=== PATIENT | female | born 1960 | race Caucasian/White ===

== ENCOUNTER 2018-07-16 07:47 | Inpatient (IN) | payer MEDICAID ==
--- NOTE | 2018-07-12 19:57 | RADRPT ---
Vent Rate: 56 bpm RR Interval: 0 msec [place] Interval: 174 msec QRS Duration: 82 msec QT Interval: 424 msec QTC Interval: 409 msec P-R-T [place]: 67 - 88 - 71 degrees Sinus bradycardia Otherwise normal ECG Electronically Signed By: Curtis Love [id number]
[2018-07-16] VITALS (25 sets, daily range): BP systolic 102–158; BP diastolic 53–83; PULSE 61–90; RESP 11–18
[~2018-07-16] VITALS: Ht 152.4 cm; Wt 59.1 kg
[~2018-07-16 07:47] MED LIST: ACETAMINOPHEN 500 MG TAB PO ONE; DESFLURANE 15 MIN ONE; LIDOCAINE 2% (SDV) 5 ML INJ ONE
[2018-07-16] MEDS ORDERED: CEFAZOLIN 2 GM/50 ML (PMX) 50 ML IVPB ONE (08:00)
[2018-07-16] MEDS ORDERED: SOD CHLORIDE 0.9% 1,000 ML IV SCH (08:00)
[2018-07-16] MEDS ORDERED: FENTAnyl 50 MCG/ML VIAL ONE ×2 (10:14→11:42)
[2018-07-16] MEDS ORDERED: MIDAZOLAM 1 MG/ML 2 ML INJ ONE (10:14)
[2018-07-16] MEDS ORDERED: FAMOTIDINE 20 MG INJ ONE (10:15)
--- NOTE | 2018-07-16 10:38 | PREAC ---
Date/Time of Note Date/Time of Note DATE: 07/16/18 TIME: 10:37 Anesthesia Eval and Record Evaluation Time Pre-Procedure Interview DATE: 07/16/18 TIME: 10:37 Age 58 Sex female NPO: 8 hrs Preoperative diagnosis papillary carcinoma Planned procedure total thyroidectomy Past Medical History Past Medical History: Includes (hx lymphoma w/ chemo last year March) Surgery & Anesthesia Issues No known issue Meds Anticoagulation: No Beta Dayana within 24 hr: No Reason Beta Dayana not given: Pt. not on B-Dayana No Active Prescriptions or Reported Meds Current Medications Sodium Chloride 1,000 ml @ 75 mls/hr [id number] IV Last administered on 07/16/18at 08:46; Admin Dose 75 MLS/HR; Start 07/16/18 at 08:00; Stop 07/16/18 at 21:19 Meds reviewed: Yes Allergies Coded Allergies: No Known Drug Allergies (Unverified Allergy, Unknown, 07/16/18) Allergies Reviewed: Yes Labs/Studies Labs Reviewed: Reviewed by anesthesiologist test: N/A Studies: ECG (nsr), CXR ( No evidence of active cardiopulmonary disease.) Pre-procedure Exam Last vitals Vital Signs Date Temp Pulse Resp B/P (MAP) Pulse Ox O2 O2 Flow FiO2 Time Delivery Rate 07/16/18 97.8 64 16 129/67 97 Room Air 08:52 (87) Airway: Adequate mouth opening, Adequate thyromental dist Mallampati: Mallampati II Teeth: Normal Lung: Normal Heart: Normal ASA Physical Status ASA physical status: 2 Emergency: None Planned Anesthetic General/MAC: ETT Pre-operative Attestations Prior to commencing anesthesia and surgery, the patient was re-evaluated, there was verification of: *The patient's identity *The results of appropriate recent lab work and preoperative vital signs *The above evaluation not changing prior to induction *Anesthetic plan, risk benefits, alternative and complications discussed with patient/family; questions answered; patient/family understands, accepts and wishes to proceed. DAMARIS WADE Jul 16, 2018 10:38
[2018-07-16] MEDS ORDERED: CEFAZOLIN 1 GM INJ ONE (10:56)
[2018-07-16] MEDS ORDERED: ONDANSETRON 4 MG INJ ONE (10:56)
[2018-07-16] MEDS ORDERED: DEXAMETHASONE 4 MG/ML 5 ML INJ ONE (10:56)
[2018-07-16] MEDS ORDERED: ROCURONIUM 50 MG INJ ONE (10:56)
[2018-07-16] MEDS ORDERED: PROPOFOL 40 ML ONE (10:56)
--- NOTE | 2018-07-16 11:18 | PAC ---
Date/Time of Note Date/Time of Note DATE: 07/16/18 TIME: 11:18 Post-Anesthesia Notes Post-Anesthesia Note Last documented vital signs Vital Signs Date Temp Pulse Resp B/P (MAP) Pulse Ox O2 O2 Flow FiO2 Time Delivery Rate 07/16/18 97.8 64 16 129/67 97 Room Air 08:52 (87) Activity: WNL Respiratory function: WNL Cardiovascular function: WNL Mental status: Baseline Pain reasonably controlled: Yes Hydration appropriate: Yes Nausea/Vomiting absent: Yes Comments BP:107/64, pulse:68, spo2:100%, T:98,8 MARY BETH DOMINGO MD Jul 16, 2018 11:18
[2018-07-16] MEDS ORDERED: FENTAnyl 50 MCG/ML VIAL IV PRN ×2 (12:30)
[2018-07-16] MEDS ORDERED: MEPERIDINE 25 MG INJ IV PRN (12:30)
[2018-07-16] MEDS ORDERED: OXYCODONE/ACETAMINOPHEN (5/325) TAB PO PRN ×2 (12:30)
[2018-07-16] MEDS ORDERED: ONDANSETRON 4 MG INJ IV PRN ×2 (12:30→14:00)
[2018-07-16] MEDS ORDERED: DIPHENHYDRAMINE 50 MG INJ IV PRN (12:30)
[2018-07-16] MEDS ORDERED: ALBUTEROL 0.083% (NEB) 2.5 MG/3 ML AMP HHN PRN (12:30)
[2018-07-16] MEDS ORDERED: HYDROmorphONE 1 MG/5 ML IV SYRINGE IV PRN ×2 (12:30)
[2018-07-16] MEDS ORDERED: LABETALOL HCL 20MG INJ IV PRN (12:30)
--- NOTE | 2018-07-16 13:56 | SIPON ---
Date/Time of Note Date/Time of Note DATE: 07/16/18 TIME: 13:55 Operative Report Preoperative Diagnosis Papillary carcinoma right thyroid lobe Postoperative Diagnosis Same Operation/Procedure Performed Total thyroidectomy Surgeon see signature line catering assistant Dr Burger Anesthesia: general Estimated blood loss: 0 - 10 ml's Transfusion Required none Specimen Total thyroidectomy specimen Grafts/Implants none Complications none CARRIE PEREA MD Jul 16, 2018 13:56
--- NOTE | 2018-07-16 13:57 | NUR ---
RECEIVED PATIENT FROM OR VIA BED POST TOTAL THYROIDECTOMY UNDER GENERAL ANESTHESIA. PATIENT STILL SLEEPING ON ARRIVAL .ORAL AIRWAY ON .ON O2 6L VIA FACE MASK SATURATING 100%.SR BP STABLE .DRESSING TO ANTERIOR NECK DRY AND INTACT.
[2018-07-16] MEDS ORDERED: morphine 2 MG INJ IV PRN (14:00)
--- NOTE | 2018-07-16 14:00 | OPR ---
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 OPERATION PERFORMED: Total thyroidectomy. ANESTHESIA: General. ANESTHESIOLOGIST: Nurse panel cutter, Rosario José NP SURGEON: Basim Martin MD STEEL INSPECTOR: Yovany Burger MD INDICATIONS FOR PROCEDURE: The patient is a 58-year-old female who is known to me. She was being tr eated for lymphoma. When a PET scan identified there is suspicious area in the thyroid, subsequent w orkup including an ultrasound-guided FNA revealed findings consistent with papillary carcinoma. She was counseled as to the need for surgery. We discussed the possibility of a unilateral right thyroid lobectomy as the tumor was approximately 1.5 cm versus total thyroidectomy and therefore, she was co nsented for right thyroid lobectomy, possible total thyroidectomy. DESCRIPTION OF PROCEDURE: The patient was brought to the operating theater, placed under general ane sthesia. The neck was put in the extended position and prepped and draped in usual sterile fashion. A planned incision was demarcated with marking pen approximately 2 cm above the clavicle and extendi ng of 4 to 5 cm on either side of the midline. Incision was carried out with 15-blade scalpel. Subc utaneous tissue was dissected with cautery down through the platysma muscles bilaterally. Subplatysm al flaps were then created using cautery, first inferiorly to the level of the clavicles and sternal notch, then superiorly to the level of the hyoid bone. The Silverio retractor was then placed in larissa dard fashion. The median raphe was incised longitudinally. This allowed identification of the under lying strap muscles. Attention was first directed to the right side. With meticulous dissection, th e strap muscles were dissected off of the capsule of the thyroid. Attention was directed to superior pole. The superior pole was mobilized using controlling lymphovascular structures with the LigaSure device. The tumor was palpable within the superior portion of the right lobe of the thyroid. Mobil ization of the thyroid continued in the parathyroid glands and the right laryngeal nerve were identif ied and kept out of harm's way and subsequently, the inferior pole was mobilized and the thyroid isth mus was dissected off of the trachea. The right lobe of thyroid was then removed by transecting the mid portion of the isthmus with the LigaSure device. Intraoperative frozen section analysis of both gross margins and evaluation for additional tumor then took place by attending pathologist, Dr. Frederic Adair. There was a satellite tumor noted. It underwent frozen section. It was confirmed that it was papillary carcinoma. Therefore, the patient had multicentric disease and decision was made to be in the patient's best interest to undergo completion thyroidectomy. Therefore, the left lobe of thyroid was mobilized. The inferior pole was transected using LigaSure device. Great care was taken to identify the parathyroid glands and the left recurrent laryngeal nerve. They were kept out of hackett rm's way at all times. Subsequently, the superior pole was mobilized using LigaSure device. Final c onnective tissue attachments consisting of ligament of Plascencia were then transected with either cautery or the LigaSure device and the lobe was sent separately for permanent pathologic analysis. It shoul d also be noted that additional small remnant of both right thyroid tissue and left thyroid tissue wa s removed and sent separately for pathologic analysis. Wound was irrigated. There was no evidence o f bleeding. The median raphe was reapproximated with multiple 4-0 Vicryl sutures in interrupted fash ion. The overlying platysma muscles were also reapproximated with 4-0 Vicryl sutures in interrupted fashion and the skin was then reapproximated with 5-0 PDS suture in subcuticular fashion and benzoin and Steri-Strips were applied. The patient tolerated the procedure well. The estimated blood loss w as 30 mL. There were no complications and the patient was transported in stable condition to the rec overy room. Dictated By: BASIM AMAYA/ILIANA Conf#: [id number] DID#: [id number]
--- NOTE | 2018-07-16 14:00 | PAC ---
Date/Time of Note Date/Time of Note DATE: 07/16/18 TIME: 13:59 Post-Anesthesia Notes Post-Anesthesia Note Last documented vital signs Vital Signs Date Temp Pulse Resp B/P (MAP) Pulse Ox O2 O2 Flow FiO2 Time Delivery Rate 07/16/18 98.7 80 16 102/53 99face 8L 1357 mask Activity: WNL Respiratory function: WNL Cardiovascular function: WNL Mental status: Baseline Pain reasonably controlled: Yes Hydration appropriate: Yes Nausea/Vomiting absent: Yes DAMARIS WADE Jul 16, 2018 14:00
--- NOTE | 2018-07-16 14:35 | NUR ---
FULLY AWAKE C/O PAIN 01/26 .FENTANYL 50MCG IV GIVEN .ZOFRAN 4MG IV GIVEN FOR NAUSEA PROPHYLAXIS.
--- NOTE | 2018-07-16 14:43 | NUR ---
PAIN NOW DOWN TO 5-6 /10 .OFFERED MORE PAIN MEDICATION PATIENTS PATIENT REFUSED .SHE IS OKAY WITH OUT PAIN MEDICATION FOR NOW.
--- NOTE | 2018-07-16 14:59 | NUR ---
TRANSFERRED TO [facility] VIA [facility] IN STABLE CONDITION .PAIN WELL CONTROLLED .DRESSING TO ANTERIOR NECK DRY AND INTACT .REPORT GIVEN TO DAMASO CANALES. PATIENTS FRIEND INFORMED.
--- NOTE | 2018-07-16 15:10 | NUR ---
RECEIVED PATIENT REPORT FROM [facility] FROM PACU. RECEIVED PATIENT TO UNIT 410 A AT 1500 HRS S/P THYROIDECTOMY UNDER DR. PEREA. PATIENT IS COMFORTABLE , VITALS STABLE , , IV SITE RIGHT HAND INTACT AND PATENT. SURGICAL SITE INTACT DRESSING WITH NO BLEEDING OR DRAINAGE NOTED . COVERED WITH GAUZE AND TAPE. PATIENT INTRODUCED TO RN AND POTATO CHIP PROCESSING SUPERVISOR. CALL LIGHT SYSTEM INTRODUCED. ON ICE CHIPS ONLY. ALL SAFETY PRECAUTIONS MAINTAINED SUCH BED IN THE LOWEST POSITION, ALARMS ON, BRAKES ON, CALL LIGHT WITHIN REACH. WILL CONTINUE TO MONITOR.
[2018-07-16] MEDS: D5W-0.45 NACL + KCL 20 MEQ 1,000 ML IV SCH ×2 (15:47→21:56)
--- NOTE | 2018-07-16 18:30 | NUR ---
END OF SHIFT NOTE: PATIENT COMFORTABLE, NO COMPLAINTS OF PAIN, NAUSEA OR VOMITING NOTED . IV SITE INTACT , SURGICAL SITE INTACT . CALL LIGHT WITHIN REACH. ALL SAFETY PRECAUTIONS MAINTAINED. WILL CONTINUE TO MONITOR.
[2018-07-17 00:01] VITALS: BP 114/61; PULSE 74; RESP 18
[2018-07-17] MEDS: D5W-0.45 NACL + KCL 20 MEQ 1,000 ML IV SCH ×3 (00:11→08:19)
[2018-07-17] MEDS: ACETAMINOPHEN 1000MG/100ML IV 100 ML IVPB PRN ×2 (01:27→13:47)
--- NOTE | 2018-07-17 01:42 | HP ---
DATE OF ADMISSION: 07/16/2018 CHIEF COMPLAINT AND HISTORY OF PRESENT ILLNESS: The patient is a 58-year-old female with history of non-Hodgkin's lymphoma status post chemotherapy. The patient is being followed by Dr. Hyde as well as Dr. Perea as an outpatient. The patient had a PET scan which did identify suspicious area in the thyroid. Subsequent workup including ultrasound-guided FNAC revealed finding consistent with pa pillary carcinoma. The patient was brought into hospital and underwent total thyroidectomy. The pat ient postoperatively has significant neck pain and is being admitted for further evaluation and manag ement. The patient denies history of chest pressure or shortness of breath. No history of fever or chills. No history of vomiting or diarrhea. No history of focal weakness. The patient remains awak e, alert and is able to speak. The patient did not have any focal numbness, tingling or paresthesias in any extremity. REVIEW OF SYSTEMS: Rest of review of systems unremarkable. PAST SURGICAL HISTORY: The patient is status post , status post breast implant, status post surgery for fibroid. ALLERGIES: NONE. SOCIAL HISTORY: No smoking, no alcohol. FAMILY HISTORY: The patient's niece was also diagnosed with thyroid cancer. PHYSICAL EXAMINATION: GENERAL: Revealed the patient to be awake, alert, fairly oriented. VITAL SIGNS: Temperature 97.8, pulse 79, respirations 18, blood pressure 134/74, O2 saturation 97% o n room air. HEENT: No eye discharge or redness. Conjunctivae and lids are normal. Oropharynx is clear. NECK: Dressing intact. CHEST: Fairly clear. CARDIOVASCULAR: S1, S2 normal. No murmur. ABDOMEN: Soft, nondistended, nontender. EXTREMITIES: No leg edema. Pedal pulses are palpable. SKIN: Without acute rash. NEUROLOGIC: The patient is awake, alert, fairly oriented with no gross focal deficit. LABORATORY DATA: WBC 4, hemoglobin 13.1, platelet 222. Sodium 138, potassium 4.3, BUN 16, creatinin e 0.7. Liver enzymes normal. IMPRESSION: Thyroid papillary carcinoma, status post total thyroidectomy. PLAN: The patient will be admitted on medical floor. The patient will be started on clear liquid di et and symptomatic treatment including Zofran for nausea, vomiting, IV morphine for pain control and Tylenol for mild to moderate pain. Further recommendation will depend on the patient's hospital cour se and recommendation from multiple consultants. Dictated By: PACHECO MOFFETT/ILIANA Conf#: [id number] DID#: [id number] CC: CARRIE PEREA MD;*EndCC*
[2018-07-17 04:09] VITALS: BP 102/60; PULSE 64; RESP 18
--- NOTE | 2018-07-17 05:51 | NUR ---
PT RESTING IN BED WITH EYES CLOSED. NO SS DISCOMFORT NOTED. NO SS RESPIRATORY DISTRESS NOTED. VSS AFEBRILE. ANTERIOR NECK DSG CDI. IVF INFUSING. TRACHE TRAY AT BEDSIDE. PT ASSISTED TO BR PT SLOW WITH STEADY PACE. MEDICATED WITH TYLENOL FOR PAIN, STATES NARCOTICS GIVE HER A HANGOVER. TYLENOL IV EFFECTIVE PER PT. WILL CONTINUE POC
[2018-07-17 08:02] VITALS: BP 120/60; PULSE 79; RESP 18
--- NOTE | 2018-07-17 12:00 | NUR ---
PATIENT ALERT , ORIENTED , COMFORTABLE. VITALS STABLE. IV FLUIDS CONTINUED IV SITE INTACT AND PATENT. SURGICAL SITE IS INTACT AND NO BLEEDING NOTED, CONTACTED DR. PEREA PER PATIENT FOR DIET. AND RECEIVED NEW ORDER FOR REGULAR DIET. PATIENT INFORMED REGARDING THE NEW ORDER . NO C/O PAIN AT THIS TIME. ALL SAFETY PRECAUTIONS MAINTAINED SUCH BED IN THE LOWEST POSITION, ALARMS ON, BRAKES ON, CALL LIGHT WITHIN REACH. . WILL CONTINUE TO MONITOR.
--- NOTE | 2018-07-17 14:00 | NUR ---
PATIENT SEEN BY DR. THAO AND NEW ORDERS RECEIVED. PER DR. THAO STAT CALCIUM ORDERED. N NEEDS TO CONTACT DR. PEREA OFFICE WITH CALCIUM RESULT WHENEVER IT IS READY. . WILL CONTINUE TO MONITOR THE PATIENT. CALL LIGHT WITHIN REACH. RESIDENT TOLERATED WELL WITH REGULAR DIET .WILL CONTINUE TO MONITOR.
[2018-07-17 14:48] VITALS: BP 129/57; PULSE 78; RESP 18
[2018-07-17] MEDS ORDERED: ACETAMINOPHEN 500 MG TAB PO PRN (15:00)
[2018-07-17] MEDS ORDERED: HYDR-3601 PO (15:05)
[2018-07-17] MEDS ORDERED: LEVO50TA7 PO (15:05)
[2018-07-17] MEDS ORDERED: HYDROCODONE/APAP (5/325) TAB PO PRN (15:30)
--- NOTE | 2018-07-17 15:36 | PN ---
DATE: 07/17/2018 Postop day #1 status post total thyroidectomy for papillary carcinoma of the right thyroid lobe in 2 nodules. SUBJECTIVE: No specific complaint. Has been receiving Tylenol 1000 mg IV for the pain and is almost pain free. Has tolerated diet and when she talks, her voice is good and is not hoarse. OBJECTIVE: VITAL SIGNS: Temperature maximum 99, heart rate 79, respiration 18, blood pressure 120/60, saturatio n 99% on room air. SKIN: Dressing was inspected and removed. The wound was inspected was clean. There is no bleeding. There is no swelling. Dressing was reapplied. LABORATORY DATA: Chemistry: Only calcium has been done today. Actually one calcium was done last n ight at 7:30 which was 9.1 and another calcium at 40 minutes past midnight, which was 8.9 and today a t 6:00 a.m. it is 8.6. PLAN: I requested to have another blood calcium level to be drawn now which is about 3:00 p.m. and i f that is in the same range of 8, we are going to discharge the patient later today afternoon to be f ollowed by Dr. Perea in the office. The patient is to call Dr. Perea' office and make appointment. The patient is to also take Tylenol 500 mg p.o. q.4 hours p.r.n. at home, because she does not want N orco. Dictated By: CASSANDRA THAO MD PS/NTS Conf#: [id number] DID#: [id number] CC: PACHECO QUAN MD; CARRIE PEREA MD;*EndCC*
--- NOTE | 2018-07-17 17:17 | NUR ---
RECEIVED CALCIUM LEVEL AND NOTIFIED DR. THAO AND GOT CLEARED FROM SURGICAL SIDE FOR DISCHARGE . CONTACTED [employer] AIDE FOR MEDICAL CLEARANCE AND SAID OK TO DISCHARGE . PATIENT DISCHARGE INSTRUCTION REGARDING POST OP WOUND CARE, FOLLOW UP VISIT , PREVENTION OF INFECTION , PREVENTION OF FALLS AND INJURIES GIVEN. PRINTED PACKET GIVEN. IV REMOVED , CATHETER TIP IS INTACT AND DRY DRESSING APPLIED. SURGICAL SITE DRESSING INTACT AND NO BLEEDING NOTED UPON DISCHARGE. DISCHARGE PRESCRIPTIONS GIVEN. AND INSTRUCTED . . PATIENT DISCHARGED AT THIS TIME SAFELY VIA WHEEL CHAIR BY TRANSPORTER. FAMILY ACCOMPANIED.
--- NOTE | 2018-07-17 23:11 | DS ---
Date/Time of Note Date/Time of Note DATE: 07/17/18 TIME: 23:08 Discharge Summary Admission/Discharge Info Admit Date/Time Jul 16, 2018 at 07:47 Discharge Date/Time Jul 17, 2018 at 17:15 Patient Condition: Stable Hx of Present Illness The patient is a 58-year-old female with history of non-Hodgkin's lymphoma status post chemotherapy. The patient is being followed by Dr. Hyde as well as Dr. Martin as an outpatient. The patient had a PET scan which did identify suspicious area in the thyroid. Subsequent workup including ultrasound-guided FNAC revealed finding consistent with papillary carcinoma. The patient was brought into hospital and underwent total thyroidectomy. The patient postoperatively has significant neck pain and is being admitted for further evaluation and management. The patient denies history of chest pressure or shortness of breath. No history of fever or chills. No history of vomiting or diarrhea. No history of focal weakness. The patient remains awake, alert and is able to speak. The patient did not have any focal numbness, tingling or paresthesias in any extremity. Hospital Course Thyroid papillary carcinoma, status post total thyroidectomy by Dr. Martin on 07/16/2018. Patient is able to tolerate food and no difficulty swallowing pain is well controlled. Calcium level is monitored, remains stable Home Meds Active Scripts Levothyroxine Sodium* (Levothyroxine Sodium*) 50 Mcg Tablet, 50 MCG PO BEFORE BREAKFAST for 30 Days, #30 TAB Prov:FARIDEH SARMIENTO 07/17/18 Hydrocodone Bit-Acetaminophen (Hydrocodone Bit-APAP) 5-325MG Tablet, 1 TAB PO Q4H PRN for MODERATE PAIN LEVEL 4-6, #30 TAB Prov:FARIDEH SARMIENTO 07/17/18 Follow-up Plan Discharge today in the evening or tomorrow a.m. after cleared by general surgery, follow-up with PMD and follow-up with Dr. Martin in 2 weeks. Primary Care Provider Not On Staff Doctor Time spent on discharge: > 30 minutes Pending Labs Laboratory Tests Test 07/17/18 00:40 07/17/18 06:04 07/17/18 15:38 Calcium Level 8.9 mg/dl (8.4-10.2) 8.6 mg/dl (8.4-10.2) 8.5 mg/dl (8.4-10.2) FARIDEH SARMIENTO Jul 17, 2018 23:11
== END 2018-07-17 17:15 | disposition home or self-care (01) | DRG 627 ==
LOC: REC 07:47 → EDSTATUS 09:00 → MS1 14:55
PROVIDERS: ADMIT Surgery Surgical Oncology; ATTEND Surgery Surgical Oncology
PROC: 0GTK0ZZ Resection of Thyroid Gland, Open Approach (ICD-10-PCS; principal; 2018-07-16 10:30)
DX: C73 Malignant neoplasm of thyroid gland (principal); Z85.72 Personal history of non-Hodgkin lymphomas
CPT/HCPCS: 71045; 80053; 82310; 85025; 85610; 85730; 88307; 88331; 93005; J0131; J0690; J1100; J2250; J2405; J3010; J3480; J7030